=== PATIENT | female | born 1935 | race Caucasian/White ===

== ENCOUNTER → 2019-04-09 | Outpatient (CLI) | payer MEDICARE, BC ==
[2019-04-09 14:26] LABS: HCT 47.9 % (34.0-46.0); HGB 15.2 gm/dL (11.4-16.0); MCHC 31.8 g/dL (31.0-37.0); Mean Platelet Volume 6.4; Platelet Count 329 k/uL (150-450); RBC 5.44 m/uL (3.80-5.40); RDW 13.6 % (11.5-15.5)
[2019-04-09 14:28] LABS: Appearance,Urine Clear (Clear); Bilirubin,Urine Negative (Negative); Blood,Urine Negative (Negative); Color,Urine Yellow; Glucose,Urine (UA) Negative (Negative); Ketones,Urine Negative (Negative); Leukocyte Esterase,Urine Negative (Negative); Nitrite,Urine Negative (Negative); PH, Urine 5.5 (5.0-8.0); Protein,Urine Trace (Negative); Specific Gravity,Urine 1.029 (1.001-1.035); Urobilinogen,Urine <2.0 mg/dL (<2.0)
[2019-04-09 14:36] LABS: INR 0.9 (<1.2); Partial Thromboplastin Time 24.2 sec (22.0-30.0); Prothrombin Time 10.2 sec (9.0-12.0)
[2019-04-09 14:38] LABS: ALT 23 U/L (9-52); AST 26 U/L (14-36); African American GFR (CKD) >90 (>60 ml/min/1.73 sqM); Albumin 4.6 g/dL (3.5-5.0); Alkaline Phosphatase 90 U/L (38-126); Anion Gap 8 mmol/L; Blood Urea Nitrogen 15 mg/dL (7-17); Calcium 10.1 mg/dL (8.4-10.2); Carbon Dioxide 29 mmol/L (22-30); Chloride 104 mmol/L (98-107); Glucose 100 mg/dL (74-99); Potassium 4.2 mmol/L (3.5-5.1); Sodium 141 mmol/L (137-145); Total Bilirubin 0.5 mg/dL (0.2-1.3); Total Protein 7.9 g/dL (6.3-8.2)
== END | disposition home or self-care (01) ==
LOC: LABPAT 12:47
PROVIDERS: ATTEND Orthopaedic Surgery
DX: Z01.818 Encounter for other preprocedural examination (principal); Z51.81 Encounter for therapeutic drug level monitoring; Z79.01 Long term (current) use of anticoagulants
CPT/HCPCS: 36415; 80053; 81003; 85027; 85610; 85730; 87070; 93005

== ENCOUNTER 2019-04-15 10:45 | Inpatient (IN) | payer MEDICARE, BC ==
[~2019-04-15 10:45] MED LIST: ACETAMINOPHEN TAB 500 MG TAB PO ONE; DEXAMETHASONE SOD PHOSPHATE 10 MG/ML 1 ML VIAL IV ONE; ONDANSETRON 4 MG/2 ML VIAL IVP ONE; ROPIVACAINE 246.25 MG, EPINEPHrine 0.5 MG, KETOROLAC 30 MG, cloNIDine HCL/PF 80 MCG, WA... MISCELLANE ONE; TRANEXAMIC ACID 1,000 MG in SODIUM CHLORIDE 0.9% 100 ML IVPB ONE
[2019-04-15] MEDS ORDERED: LIDOCAINE 1% 20 ML VIAL (10MG/ML) FOR IV START INTRADERMA ONE (11:12)
[2019-04-15] MEDS: LACTATED RINGERS 1,000 ML IV SCH (11:12)
[2019-04-15] MEDS ORDERED: MELOXICAM 7.5 MG TAB PO ONE (11:13)
[2019-04-15] MEDS ORDERED: ONDANSETRON 4 MG/2 ML VIAL IVP PRN (11:33)
[2019-04-15] MEDS ORDERED: HYDROmorphone 0.5 MG/0.5 ML SYRINGE IVP PRN ×3 (11:33)
[2019-04-15] MEDS ORDERED: MAGNESIUM HYDROXIDE 2,400 MG/10 ML CUP PO PRN (11:33)
[2019-04-15] MEDS ORDERED: NALOXONE 0.4 MG/ML 1 ML VIAL IV PRN (11:33)
[2019-04-15] MEDS ORDERED: PROPOFOL 10 MG/ML 20 ML VIAL IV ONE (11:49)
[2019-04-15] MEDS ORDERED: TRANEXAMIC ACID 1,000 MG/10 ML VIAL ONE (11:49)
[2019-04-15] MEDS ORDERED: HEPARIN SODIUM,PORCINE 10,000 UNIT/ML 1 ML VIAL ONE (11:49)
[2019-04-15] MEDS ORDERED: SODIUM CHLORIDE 0.9% IRRIG 1,000 ML BTL IRRIGATION ONE (11:49)
[2019-04-15] MEDS ORDERED: MIDAZOLAM 2 MG/2 ML VIAL ONE (11:49)
[2019-04-15] MEDS ORDERED: fentaNYL (PF) 50 MCG/ML 2 ML AMP ONE (11:49)
[2019-04-15] MEDS ORDERED: PHENYLEPHRINE-0.9% NACL SYG 1 MG/10 ML SYRINGE ONE (11:49)
[2019-04-15] MEDS ORDERED: SUCCINYLCHOLINE CHLORIDE 100 MG/5 ML SYR IV ONE (11:49)
[2019-04-15] MEDS ORDERED: SODIUM CHLORIDE 0.9% 100 ML BAG ONE (11:49)
[2019-04-15] MEDS: CLINDAMYCIN 900 MG in DEXTROSE 5% IN WATER 50 ML IVPB ONE ×4 (12:05→12:32)
[2019-04-15] MEDS ORDERED: ceFAZolin 3,000 MG in SODIUM CHLORIDE 0.9% IRRIGATIO 3,000 ML IRRIGATION ONE (12:31)
[2019-04-15] MEDS ORDERED: LACTATED RINGERS 1,000 ML IV ONE (13:22)
--- NOTE | 2019-04-15 13:24 | P.OP ---
Date of Procedure: 04/15/19 Preoperative Diagnosis: Severe osteoarthritis right hip Postoperative Diagnosis: Severe osteoarthritis right hip Procedure(s) Performed: Right total hip arthroplasty with a direct anterior approach Implants: Antunez and nephew Polarstem size 4 standard Antunez [employer] Nephew R3, 3 hole acetabular shell, 52 mm Antunez [employer] Nephew reflection 6.5 mm cancellus screw, 20 mm 2 Antunez [employer] Nephew R3, XLPE 20 acetabular liner Antunez & Nephew Oxinium femoral head 36 m, +4 All components were press-fit. The articulation is Oxinium on polyethylene. Anesthesia: GETA Surgeon: Nabeel Prakash Blender / Cook #1: Steffi Rubio Estimated Blood Loss (ml): 250 (59 mL returned with Cell Saver) Pathology: other (Femoral head) Condition: stable Disposition: PACU Indications for Procedure: After failure of conservative treatment we discussed the surgical and nonsurgical treatment options at length. Patient wishes to proceed with a total hip arthroplasty with a direct anterior approach. Complications specific to this procedure were discussed at length, including but not limited to infection, leg length discrepancy, dislocation, and nerve injury. Patient is aware of all these complications and informed consent was obtained Operative Findings: The operative findings are consistent with severe osteoarthritis of the right hip Description of Procedure: Patient was seen and evaluated in the preoperative area, consent was reviewed, and the surgical site was marked with a skin marker. Patient was then brought to the operating room and given prophylactic antibiotics intravenously. 1 g of Tranexamic acid was also given. A spinal anesthetic was administered by the anesthesia department. The spinal did give adequate anesthesia, so general was given. The patient was then placed on the [place] table with the bony prominences well-padded. The hip area was then prepped and draped in usual sterile fashion. A universal timeout was then performed, which confirmed the patient's name, surgical site, ALLERGIES, and procedure being performed. Next the incision site was located at 1 cm distal and 1 cm lateral to the anterior superior iliac spine. The skin and subcutaneous tissues were sharply incised. Incision was carefully dissected down to the fascia overlying the tensor fascia jen muscle. This fascia was then incised in line with the incision. Next, using blunt finger dissection, the tensor fascia jen muscle was dissected off its investing fascia. The muscle was then carefully retracted laterally with a cobra retractor over the lateral neck of the femur. Next, the circumflex vessels were identified and cauterized using the AquaMantis device. The anterior hip capsule was then exposed. The capsule was then opened and an inverted T fashion. Cobra retractors were then placed intracapsularly. The proximal femur was then visualized. The femoral neck was then osteotomized appropriate level above the lesser trochanter. Small amount of traction was placed with the [place] table. A small wedge of bone was then removed from the remaining femoral head. Next, using a corkscrew femoral head was easily removed from the acetabulum. On gross visual inspection, the femoral head had complete loss of articular cartilage in multiple periarticular osteophytes. Attention was then turned to the acetabulum. the acetabulum was exposed and any remaining labrum was excised. Sequential reaming of the acetabulum was performed using fluoroscopic guidance. When the appropriate size was reached, a trial was then placed. The position and fit of the trial was checked with fluoroscopy. The trial was then removed. Then, using fluoroscopic guidance, the final implant was impacted at 20 of anteversion and 40 of abduction, and fully seated in the acetabulum. 2 screws were then placed in the acetabulum. Again fluoroscopy was used to check position of the screws. Next, the liner was then impacted, with a 20 elevated liner located in the anterior superior quadrant. Component locking was confirmed. Attention was then directed to the femur. With the aid of the [place] table, the femur was externally rotated to approximately 130, extended, and abducted under the opposite leg. A side hook was then placed under the proximal femur, and the side hook elevator was used to elevate the proximal femur. Retractors were then placed. A capsular release was performed, as well as a release of the conjoined tendon, which afforded excellent visualization of the proximal femur. Next, a box osteotome was used to lateralize the proximal femur. A material handler 1st shift was then used to locate the femoral canal. Sequential broaching was then performed with appropriate size which afforded excellent fixation in the proximal femur. A trial was then placed with appropriate head and neck, and the hip was gently reduced with the aid of the [place] table. Fluoroscopy was then used to check position of the components, as well as to ensure equal leg lengths. The hip was then gently dislocated and the trials were then removed. Final implants were then impacted and the hip was again reduced. Final fluoroscopic x-rays confirmed that the components were in anatomic position, as well as equal leg lengths. The hip was also taken through range of motion, and found to be stable. The hip was then copiously irrigated with antibiotic solution with pulsatile lavage. The hip was then irrigated with Irrisept solution. The soft tissues were then injected with a ropivacaine solution, which consisted of 246.25 mg of ropivacaine, 0.5 mg of epinephrine, 30 mg of Toradol, 80 g of clonidine, and 48.45 mL of sterile water, for a total of 100 mL of fluid injected. A second dose of 1 g of Tranexamic acid was also given. the fascia was then closed with 2-0 strata fix suture. The subcutaneous tissue was closed with 3-0 Vicryl. The subcuticular tissue was closed with 3-0 strata fix suture. The skin was then closed with Dermabond glue and a sterile silver dressing. The patient was then transferred to the recovery room in stable condition. The process assistant KALINA Tripp was required due to the complexity of surgery, and the need for skilled rn surgical pcu for positioning, draping, exposure, retraction, and closure of the wound.
--- NOTE | 2019-04-15 13:47 | XR ---
EXAMINATION TYPE: XR Hip Limited RT DATE OF EXAM: 04/15/2019 COMPARISON: NONE HISTORY: Postop TECHNIQUE: One view submitted. FINDINGS: There is postsurgical change in near anatomic alignment. There is soft tissue edema and emphysema. IMPRESSION: 1. Postoperative change. Appears in near-anatomic alignment.
[2019-04-15] MEDS: HYDROmorphone 0.5 MG/0.5 ML SYRINGE IVP PRN ×3 (14:05→14:15)
--- NOTE | 2019-04-15 14:19 | FL ---
EXAMINATION TYPE: FL guided pain mgmt statistic DATE OF EXAM: 04/15/2019 HISTORY: Flouroscopy time 49 seconds of fluoroscopy provided. IMPRESSION: 1. Fluoroscopy time.
--- NOTE | 2019-04-15 16:54 | P.CONS ---
History of Present Illness - Reason for Consult Consult date: 04/15/19 Consulted for medical management of hypertension Requesting physician: Nabeel Prakash - Chief Complaint Consulted for medical management - History of Present Illness The patient is a 83-year-old female a past focal history of essential hypertension, hypothyroidism and hyperlipidemia who is currently admitted under the primary orthopedic surgeon is under Dr. Prakash and is postop day #0 status post right hip arthroplasty secondary to severe right hip osteoarthritis. The patient currently reports that her pain is controlled, she is groggy from anesthesia and some of the history is obtained from her daughter who is present at bedside. The patient denies any chest pain shortness of breath she denies any lightheadedness or dizziness, she is able to wiggle her toes. She denies any nausea vomiting or any other somatic complaints with the exception of n umbness of her right lower extremity. Review of her Records indicate the patient is currently on perioperative antibiotics with clindamycin and is currently receiving [place] Dilaudid for pain and is on Xarelto for DVT prophylaxis. The patient is doing well and is hemodynamically stable Review of Systems Pertinent positives per HPI all other systems are otherwise negative Past Medical History Past Medical History: Deep Vein Thrombosis (DVT), Hyperlipidemia, Hypertension, Musculoskeletal Disorder, Osteoarthritis (OA), Skin Disorder, Thyroid Disorder, Vascular Disorder Additional Past Medical History / Comment(s): DVT AGE 26. HX ULCERATIVE COLITIS; VERTIGO X1. PAIN IN RT HIP YOHANA SHOULDERS. FUNGUS ON TOENAILS. PSORIASIS. PAD. VARICOSE VEINS. History of Any Multi-Drug Resistant Organisms: None Reported Past Surgical History: Adenoidectomy, Hysterectomy, Tonsillectomy Additional Past Surgical History / Comment(s): YOHANA CATARACTS. PTBA RT SFA/POPLITEAL, PTBA RT TIBIOPERONEAL/TIBIAL 08/2018 - HAS 2 CLIPS IN LT FEMORAL ARTERY. Past Anesthesia/Blood Transfusion Reactions: Previous Problems w/ Anesthesia Additional Past Anesthesia/Blood Transfusion Reaction / Comm: WITH 2ND VASCULAR PROC FENTANYL, VERSED CAUSED RASH. Smoking Status: Never smoker - Past Family History Father Family Medical History: Cancer Daughter(s) Family Medical History: Deep Vein Thrombosis (DVT) Medications and Allergies Home Medications Medication Instructions Recorded Confirmed Type Acetaminophen [Tylenol Extra 500 mg PO Q6H PRN 04/07/19 04/15/19 History Strength] Aspirin [Adult Low Dose Aspirin EC] 81 mg PO BID 04/07/19 04/15/19 History Calcium Citrate/Vitamin D3 1 tab PO DAILY 04/07/19 04/15/19 History [Calcium Cit 315-Vit D3 250mg Tab] Ciclopirox Olamine [Ciclopirox 1 applic TOPICAL DAILY 04/07/19 04/15/19 History 0.77% Topical Susp.] Hydrochlorothiazide [Hydrodiuril] 12.5 mg PO DAILY 04/07/19 04/15/19 History Ibuprofen [Motrin Ib] 200 mg PO Q6H PRN 04/07/19 04/15/19 History Levothyroxine Sodium [Synthroid] 100 mcg PO DAILY 04/07/19 04/15/19 History Multivitamins, Thera [Multivitamin 1 tab PO DAILY 04/07/19 04/15/19 History (formulary)] Simvastatin [Zocor] 20 mg PO HS 04/07/19 04/15/19 History Apixaban [Eliquis] 2.5 mg PO BID 33 Days #66 tab 04/16/19 Rx HYDROcodone/APAP 5-325MG [[place] 1 - 2 tab PO Q6HR PRN #56 tab 04/16/19 Rx 5-325] Sennosides [Senokot] 1 tab PO BID #60 tablet 04/16/19 Rx Allergies Allergy/AdvReac Type Severity Reaction Status Date / Time fentanyl Allergy Rash/Hives Verified 04/15/19 15:11 levofloxacin [From Levaquin] Allergy Rash/Hives Verified 04/15/19 15:11 midazolam [From Versed] Allergy Rash/Hives Verified 04/15/19 15:11 Penicillins Allergy Swelling, Verified 04/15/19 15:11 RASH rosuvastatin [From Crestor] Allergy Unknown Verified 04/15/19 15:11 Physical Exam Vitals: Vital Signs Temp Pulse Resp BP Pulse Ox 04/15/19 14:47 73 16 135/78 97 04/15/19 14:32 78 16 137/66 98 04/15/19 14:17 79 16 132/68 99 04/15/19 14:02 79 16 136/69 95 04/15/19 13:48 97 F L 83 16 133/67 94 L 04/15/19 11:02 2 F L 101 H 18 178/97 95 Intake and Output 04/15/19 04/15/19 04/15/19 06:59 14:59 22:59 Intake Total 1457 Output Total 250 Balance 1207 Intake: IV 1457 Output: Estimated Blood Loss 250 Constitutional: No acute distress, conversant, pleasant, appears groggy from anesthesia Eyes: Anicteric sclerae, moist conjunctiva, no lid-lag, PERRLA ENMT: NC/AT,Oropharynx clear, no erythema, exudates Neck:Supple, FROM, no masses, or JVD, No carotid bruits; No thyromegaly Lungs: Clear to auscultation, Clear to percussion, Normal respiratory effort, no accessory muscle use Cardiovascular: Heart regular in rate and rhythm, No murmurs, gallops, or rubs no peripheral edema Abdominal: Soft Nontender, nom distended, no guarding, no rebound or rigidity, Normoactive bowel sounds No hepatomegaly, No splenomegaly, No palpable mass No abdominal wall hernia noted Skin: Normal temperature, tone, texture, turgor, No induration No subcutaneous nodules, No rash, lesions, No ulcers Extremities: Calf is soft and nontender dressing clean dry and intact able to wiggle her toes for range of motion of the ankle without any difficulty, appears neurovascularly intact Psychiatric: Awake alert, Appropriate affect Intact judgement Neuro: Muscles Strength 5/5 in all 4 extremities, Sensation to light touch grossly present throughout, Cranial nerves II-XII grossly intact. No focal sensory deficits Results CBC & Chem 7: 04/16/19 07:24 Assessment and Plan (1) Essential hypertension Current Visit: Yes Status: Acute Code(s): I10 - ESSENTIAL (PRIMARY) HYPERTENSION SNOMED Code(s): 36109912 (2) Hyperlipidemia Current Visit: Yes Status: Acute Code(s): E78.5 - HYPERLIPIDEMIA, UNSPECIFIED SNOMED Code(s): 44372960 (3) Hypothyroidism Current Visit: Yes Status: Acute Code(s): E03.9 - HYPOTHYROIDISM, UNSPECIFIED SNOMED Code(s): 65501740 (4) Status post right hip replacement Current Visit: Yes Status: Acute Code(s): Z96.641 - PRESENCE OF RIGHT ARTIFICIAL HIP JOINT SNOMED Code(s): 586819660 Plan: The patient is admitted to primary orthopedic service is postop day 0 status post right hip arthroplasty secondary to severe degenerative right hip osteoarthritis. We'll defer all ongoing pain management to the surgical team, the patient is currently medically stable all her home medications have been reordered . Agree with continuing anticoagulation for DVT prophylaxis. We'll follow-up a postop labs and continue to follow her clinical course. I appreciate opportunity to be involved in ongoing care of this patient , for further questions do not hesitate to contact us on inpatient team
[2019-04-15] MEDS: CLINDAMYCIN 900 MG in DEXTROSE 5% IN WATER 50 ML IVPB SCH ×4 (18:16→23:20)
[2019-04-15 19:07] VITALS: BMI 31.8
[2019-04-15] MEDS: SODIUM CHLORIDE 0.9% 1,000 ML IV SCH (20:38)
[2019-04-15] MEDS: SENNOSIDES-DOCUSATE SODIUM 1 EACH TAB PO SCH (21:19)
[2019-04-15] MEDS: SIMVASTATIN 20 MG PO SCH (21:19)
[2019-04-15] MEDS: HYDROcodone/APAP 5-325MG 1 EACH TAB PO PRN (22:02)
[2019-04-16] MEDS: LACTATED RINGERS 1,000 ML IV SCH (03:04)
[2019-04-16] MEDS: SODIUM CHLORIDE 0.9% 1,000 ML IV SCH ×2 (03:04→19:26)
[2019-04-16] MEDS: HYDROcodone/APAP 5-325MG 1 EACH TAB PO PRN ×4 (03:12→20:14)
[2019-04-16] MEDS: LEVOTHYROXINE 100 MCG TAB PO SCH (06:00)
[2019-04-16 07:37] LABS: Basophils % (A) 0 %; Eosinophils # (A) 0.1 k/uL (0-0.7); Eosinophils % (A) 1 %; HCT 37.3 % (34.0-46.0); HGB 12.3 gm/dL (11.4-16.0); Lymphocytes # (A) 1.4 k/uL (1.0-4.8); Lymphocytes % (A) 14 %; MCH 28.9 pg (25.0-35.0); MCHC 32.9 g/dL (31.0-37.0); MCV 87.8 fL (80.0-100.0); Mean Platelet Volume 6.2; Monocytes # (A) 0.5 k/uL (0-1.0); Monocytes % (A) 5 %; Neutrophils # (A) 7.4 k/uL (1.3-7.7); Neutrophils % (A) 78 %; Platelet Count 234 k/uL (150-450); RBC 4.25 m/uL (3.80-5.40); RDW 13.6 % (11.5-15.5); WBC 9.5 k/uL (3.8-10.6)
--- NOTE | 2019-04-16 08:42 | P.DS ---
Providers Date of admission: 04/15/19 10:45 Expected date of discharge: 04/16/19 Attending physician: Nabeel Prakash Consults: 04/15/19 11:33 Consult Physician Routine Consulting Provider: Jimbo Márquez Consult Reason/Comments: medical management Do you want consulting provider notified?: Yes Primary care physician: Stated None - Discharge Diagnosis(es) (1) Osteoarthritis of right hip Current Visit: Yes Status: Acute (2) Status post right hip replacement Current Visit: Yes Status: Acute Hospital Course: This is a 83-year-old female with known history of degenerative arthritis of the right hip. The patient presents for evaluation. After discussion and consideration patient elects to proceed with total hip arthroplasty. The patient is seen preoperatively by Dr. Prakash and medically cleared for surgery by their primary care physician. Patient is admitted to [facility] on 04/15/2019 for total hip arthroplasty. The procedures performed without complication or sequelae. The patient is doing well postoperatively. Labs and vital signs are stable on day of discharge. On day of discharge patient's hip incision is healing well. There is minimal erythema. There is no drainage noted at this time. There is minimal soft tissue swelling to the hip and thigh. Patient has full foot and ankle motion without difficulty or pain. Calf is soft and nontender to palpation. Neurovas cular status to the right lower extremity is intact. Patient is discharged home in good condition. Opioid start talking form is reviewed and signed at patient bedside. Please see med rec for accurate list of home medications. Plan - Discharge Summary Discharge Rx Participant: Yes New Discharge Prescriptions: New HYDROcodone/APAP 5-325MG [[place] 5-325] 1 - 2 tab PO Q6HR PRN #56 tab PRN Reason: Pain Sennosides [Senokot] 1 tab PO BID #60 tablet Rivaroxaban [Xarelto] 10 mg PO DAILY #34 tab No Action Ibuprofen [Motrin Ib] 200 mg PO Q6H PRN PRN Reason: Pain Simvastatin [Zocor] 20 mg PO HS Multivitamins, Thera [Multivitamin (formulary)] 1 tab PO DAILY Levothyroxine Sodium [Synthroid] 100 mcg PO DAILY Hydrochlorothiazide [Hydrodiuril] 12.5 mg PO DAILY Ciclopirox Olamine [Ciclopirox 0.77% Topical Susp.] 1 applic TOPICAL DAILY Calcium Citrate/Vitamin D3 [Calcium Cit 315-Vit D3 250mg Tab] 1 tab PO DAILY Aspirin [Adult Low Dose Aspirin EC] 81 mg PO BID Acetaminophen [Tylenol Extra Strength] 500 mg PO Q6H PRN PRN Reason: Pain Discharge Medication List Acetaminophen [Tylenol Extra Strength] 500 mg PO Q6H PRN 04/07/19 [History] Aspirin [Adult Low Dose Aspirin EC] 81 mg PO BID 04/07/19 [History] Calcium Citrate/Vitamin D3 [Calcium Cit 315-Vit D3 250mg Tab] 1 tab PO DAILY 04/07/19 [History] Ciclopirox Olamine [Ciclopirox 0.77% Topical Susp.] 1 applic TOPICAL DAILY 04/07/19 [History] Hydrochlorothiazide [Hydrodiuril] 12.5 mg PO DAILY 04/07/19 [History] Ibuprofen [Motrin Ib] 200 mg PO Q6H PRN 04/07/19 [History] Levothyroxine Sodium [Synthroid] 100 mcg PO DAILY 04/07/19 [History] Multivitamins, Thera [Multivitamin (formulary)] 1 tab PO DAILY 04/07/19 [History] Simvastatin [Zocor] 20 mg PO HS 04/07/19 [History] HYDROcodone/APAP 5-325MG [[place] 5-325] 1 - 2 tab PO Q6HR PRN #56 tab 04/16/19 [Rx] Rivaroxaban [Xarelto] 10 mg PO DAILY #34 tab 04/16/19 [Rx] Sennosides [Senokot] 1 tab PO BID #60 tablet 04/16/19 [Rx] Follow up Appointment(s)/Referral(s): Nabeel Prakash DO [Doctor of Osteopathic Medicine] - 2 Weeks Activity/Diet/Wound Care/Special Instructions: Weightbearing as tolerated with walker. Leave dressing intact. Dressing may be removed by home care nurse or by patient in 10 days. May shower with dressing on. Please follow-up with [facility] in 2 weeks and call with any questions or concerns, . Discharge Disposition: HOME WITH HOME HEALTH SERVICES
[2019-04-16] MEDS: CALCIUM CARB-VIT D 250MG-125UN 1 EACH TAB PO SCH (08:56)
[2019-04-16] MEDS: MULTIVITAMINS, THERA 1 EACH TAB PO SCH (08:56)
[2019-04-16] MEDS: HYDROCHLOROTHIAZIDE 12.5 MG CAP PO SCH (08:56)
[2019-04-16] MEDS: CICLOPIROX OLAMINE TOPICAL SCH (08:58)
[2019-04-16] MEDS ORDERED: RIVAROXABAN 10 MG TAB PO SCH (09:00)
--- NOTE | 2019-04-16 09:01 | P.PN ---
Subjective Progress Note Date: 04/16/19 This is an 83-year-old female who is status post right total hip arthroplasty. This is postoperative day #1 and patient is seen and evaluated at bedside with Dr. Nabeel Prakash. Patient states that her pain is well controlled. Patient states that she has been out of bed to transfer to the commode chair. The patient's daughter is also at the bedside. Patient denies any fever/chills, numbness, weakness, tingling, abdominal pain, shortness of breath or chest pain. Objective - Vital Signs Vital signs: Vital Signs Temp 99.5 F 04/16/19 07:05 Pulse 89 04/16/19 07:05 Resp 18 04/16/19 07:05 BP 134/69 04/16/19 07:05 Pulse Ox 95 04/16/19 07:33 Intake & Output 04/15/19 04/16/19 04/16/19 18:59 06:59 18:59 Intake Total 1457 300 240 Output Total 250 1 Balance 1207 299 240 Intake: IV 1457 Oral 300 240 Output: Urine 1 Estimated Blood Loss 250 Other: # Voids 2 - Exam Vital signs are stable. Patient is in no acute distress and is alert and oriented 3. Calf is soft and nontender to palpation. Dressing is clean, dry, and intact. Patient has full foot and ankle motion without pain or difficulty. Neurovascular status and circulatory status are intact. - Labs CBC & Chem 7: 04/16/19 07:24 Assessment and Plan (1) Osteoarthritis of right hip Current Visit: Yes Status: Acute Code(s): M16.11 - UNILATERAL PRIMARY OSTEOARTHRITIS, RIGHT HIP SNOMED Code(s): 223195183286658 (2) Status post right hip replacement Current Visit: Yes Status: Acute Code(s): Z96.641 - PRESENCE OF RIGHT ARTIFICIAL HIP JOINT SNOMED Code(s): 432739054 Plan: Continue routine postop care and pain control. Continue anticoagulation with Xarelto due to history of DVT. Weightbearing as tolerated with a walker. Leave dressing in place for 10 days. Appreciate input from medicine. Likely discharge home with home care today or tomorrow.
--- NOTE | 2019-04-16 12:42 | P.PN ---
Subjective Progress Note Date: 04/16/19 The patient is doing well currently sitting up at bedside. Reports she is recently back from ambulating with a walker with physical therapy, reports moderate pain in left hip. Denies any chest pain shortness of breath Objective - Vital Signs Vital signs: Vital Signs Temp 99.5 F 04/16/19 07:05 Pulse 89 04/16/19 07:05 Resp 18 04/16/19 07:05 BP 134/69 04/16/19 07:05 Pulse Ox 95 04/16/19 07:33 Intake & Output 04/15/19 04/16/19 04/16/19 18:59 06:59 18:59 Intake Total 1457 300 240 Output Total 250 1 1 Balance 1207 299 239 Intake: IV 1457 Oral 300 240 Output: Urine 1 1 Estimated Blood Loss 250 Other: # Voids 2 2 - Exam Constitutional: No acute distress, conversant, pleasant Eyes: Anicteric sclerae, moist conjunctiva, no lid-lag, PERRLA ENMT: NC/AT,Oropharynx clear, no erythema, exudates Neck:Supple, FROM, no masses, or JVD, No carotid bruits; No thyromegaly Lungs: Clear to auscultation, Clear to percussion, Normal respiratory effort, no accessory muscle use Cardiovascular: Heart regular in rate and rhythm, No murmurs, gallops, or rubs no peripheral edema Abdominal: Soft Nontender, nom distended, no guarding, no rebound or rigidity, Normoactive bowel sounds No hepatomegaly, No splenomegaly, No palpable mass No abdominal wall hernia noted Skin: Normal temperature, tone, texture, turgor, No induration No subcutaneous nodules, No rash, lesions, No ulcers Extremities: Calf is soft and nontender dressing clean dry and intact able to wiggle her toes for range of motion of the ankle without any difficulty, appears neurovascularly intact Psychiatric: Alert and oriented to person, place and time, Appropriate affect Intact judgement Neuro: Muscles Strength 5/5 in all 4 extremities, Sensation to light touch grossly present throughout, Cranial nerves II-XII grossly intact. No focal sensory deficits - Labs CBC & Chem 7: 04/16/19 07:24 Assessment and Plan (1) Essential hypertension Narrative/Plan: * Blood pressure stable controlled continue home regimen Current Visit: Yes Status: Acute Code(s): I10 - ESSENTIAL (PRIMARY) HYPERTENSION SNOMED Code(s): 82972733 (2) Hyperlipidemia Narrative/Plan: Continue home regimen Current Visit: Yes Status: Acute Code(s): E78.5 - HYPERLIPIDEMIA, UNSPECIFIED SNOMED Code(s): 67647662 (3) Hypothyroidism Narrative/Plan: * Continue home regimen Current Visit: Yes Status: Acute Code(s): E03.9 - HYPOTHYROIDISM, UNSPECIFIED SNOMED Code(s): 69355028 (4) Status post right hip replacement Narrative/Plan: * Defer analgesic therapy to primary team * Patient appears medically stable sign off today Current Visit: Yes Status: Acute Code(s): Z96.641 - PRESENCE OF RIGHT ARTIFICIAL HIP JOINT SNOMED Code(s): 821989434
[2019-04-16] MEDS: SENNOSIDES-DOCUSATE SODIUM 1 EACH TAB PO SCH (20:14)
[2019-04-16] MEDS: SIMVASTATIN 20 MG PO SCH (20:25)
[2019-04-17] MEDS: LACTATED RINGERS 1,000 ML IV SCH (05:13)
[2019-04-17] MEDS: HYDROcodone/APAP 5-325MG 1 EACH TAB PO PRN (05:55)
[2019-04-17] MEDS: LEVOTHYROXINE 100 MCG TAB PO SCH (05:56)
[2019-04-17 07:33] VITALS: BP 127/72; PULSE 98; RESP 16; TEMP 99
[2019-04-17] MEDS: HYDROCHLOROTHIAZIDE 12.5 MG CAP PO SCH (08:57)
[2019-04-17] MEDS: MULTIVITAMINS, THERA 1 EACH TAB PO SCH (08:57)
[2019-04-17] MEDS: CALCIUM CARB-VIT D 250MG-125UN 1 EACH TAB PO SCH (08:57)
[2019-04-17] MEDS: CICLOPIROX OLAMINE TOPICAL SCH (08:58)
[2019-04-17] MEDS ORDERED: APIXABAN 2.5 MG TABLET PO SCH (09:00)
== END 2019-04-17 11:40 | disposition home health service (06) | DRG 470 ==
LOC: 4SSUR 10:45
PROVIDERS: ADMIT Orthopaedic Surgery; ATTEND Orthopaedic Surgery
PROC: 0SR906A Replacement of Right Hip Joint with Oxidized Zirconium on Polyethylene Synthetic Substitute, Uncemented, Open Approach (ICD-10-PCS; principal; 2019-04-15 11:30)
DX: M16.11 Unilateral primary osteoarthritis, right hip (principal); I10 Essential (primary) hypertension; E03.9 Hypothyroidism, unspecified; E78.5 Hyperlipidemia, unspecified; L40.9 Psoriasis, unspecified; Z79.01 Long term (current) use of anticoagulants; Z79.82 Long term (current) use of aspirin; Z79.890 Hormone replacement therapy; Z79.899 Other long term (current) drug therapy; Z90.710 Acquired absence of both cervix and uterus; Z86.718 Personal history of other venous thrombosis and embolism; Z90.89 Acquired absence of other organs; Z98.42 Cataract extraction status, left eye; Z98.41 Cataract extraction status, right eye; Z80.9 Family history of malignant neoplasm, unspecified; Z83.2 Family history of diseases of the blood and blood-forming organs and certain disorders involving the immune mechanism; Z88.1 Allergy status to other antibiotic agents; Z88.0 Allergy status to penicillin; Z88.8 Allergy status to other drugs, medicaments and biological substances; Z87.19 Personal history of other diseases of the digestive system; Z82.49 Family history of ischemic heart disease and other diseases of the circulatory system; Z98.891 History of uterine scar from previous surgery
CPT/HCPCS: 73501; 85025; 86850; 86891; 86900; 86901; 88300; 94760